=== PATIENT | female | born 1985 | race Native Hawaiian/Other Pacific Islander ===

== ENCOUNTER 2020-08-23 08:53 | Outpatient (CLI) | payer BC | END 2020-08-23 19:06 | disposition home or self-care (01) | LOC: LABW 08:53 | PROVIDERS: ATTEND Obstetrics & Gynecology Reproductive Endocrinology | DX: Z11.9 Encounter for screening for infectious and parasitic diseases, unspecified (principal) | CPT/HCPCS: 36415; 86317; 86592; 86704; 86790; 86803 ==